=== PATIENT | male | born 1930 | race Caucasian/White ===

== ENCOUNTER 2016-11-26 21:20 | Emergency (ER) | payer MEDICARE ==
[~2016-11-26] VITALS: Ht 172.7 cm; Wt 70.0 kg
[~2016-11-26 21:20] MED LIST: ALL220TA PO
[2016-11-26 21:23] VITALS: BP 138/67; PULSE 95; RESP 16; TEMP 100.4; O2SAT 96
== END 2016-11-26 23:59 | disposition left against medical advice (07) ==
LOC: NED 21:20
DX: R50.9 Fever, unspecified (principal)
CPT/HCPCS: 99281